=== PATIENT | female | born 1960 | race Caucasian/White ===

== ENCOUNTER 2019-03-11 18:55 | Emergency (ER) | payer MEDICAID ==
[~2019-03-11] VITALS: Ht 152.4 cm; Wt 102.3 kg
[2019-03-11 19:01] VITALS: Ht 152.4 cm; Wt 102.3 kg
[2019-03-11] MEDS ORDERED: NORVASC10 MG PO (19:07)
[2019-03-11] MEDS ORDERED: LISINOPRIL30 MG PO (19:07)
[2019-03-11] MEDS ORDERED: GLUCOPHAGE500 MG PO (19:07)
[2019-03-11] MEDS ORDERED: PIOGLITAZONE15 MG PO (19:08)
[2019-03-11] MEDS ORDERED: PLAVIX75 MG PO (19:08)
[2019-03-11] MEDS ORDERED: SYNTHROID25 MCG PO (19:08)
[2019-03-11] MEDS ORDERED: ZOCOR10 MG PO (19:08)
[2019-03-11] MEDS ORDERED: ASPIRIN EC81 M1 PO (19:09)
[2019-03-11] MEDS ORDERED: ZOLOFT50 MG PO (19:09)
[2019-03-11] MEDS ORDERED: NEURONTIN 300300 MG PO (19:09)
[2019-03-11] MEDS ORDERED: CORTISPORIN OP3.5 G1 RIGHT EYE (21:25)
[2019-03-11 21:47] VITALS: BP 123/77
== END 2019-03-11 21:47 | disposition home or self-care (01) ==
LOC: D.ER 18:55
DX: S05.01XA Injury of conjunctiva and corneal abrasion without foreign body, right eye, initial encounter (principal); X58.XXXA Exposure to other specified factors, initial encounter